=== PATIENT | female | born 1995 | race Two or more races ===

== ENCOUNTER 2017-08-19 14:11 | Emergency (ER) | payer MEDICAID ==
[~2017-08-19] VITALS: Ht 175.3 cm; Wt 81.6 kg
[2017-08-19 15:07] LABS: Salicylate < 1.7 mg/dL (2.8-20.0)
[2017-08-19 15:13] LABS: Acetaminophen < 2.0 ug/mL (10-30)
[2017-08-19 15:51] LABS: Urine Pregnacy Test Negative (Negative)
[2017-08-19 16:05] LABS: Alcohol, Urine < 3.0 mg/dL (0-5); Amphetamine Screen, Urine NEGATIVE (NEGATIVE); Barbiturate Scree,Urine NEGATIVE (NEGATIVE); Benzodiazephine Screen, Urine NEGATIVE (NEGATIVE); Cannabinoid Screen, Urine POSITIVE (NEGATIVE); Cocaine Screen, Urine NEGATIVE (NEGATIVE); Opiate Scree,Urine NEGATIVE (NEGATIVE); Phencyclidine Screen, Urine NEGATIVE (NEGATIVE)
[2017-08-22 22:06] VITALS: BP 122/74
== END 2017-08-22 22:12 | disposition home or self-care (01) ==
LOC: ER 14:11
DX: F31.9 Bipolar disorder, unspecified (principal); F17.210 Nicotine dependence, cigarettes, uncomplicated; R45.851 Suicidal ideations
CPT/HCPCS: 36415; 80307; 80320; 80329; 81025